=== PATIENT | female | born 1990 | race Caucasian/White ===

== ENCOUNTER → 2025-01-10 | Outpatient (CLI) | payer OTHER, SELFPAY ==
--- NOTE | 2025-01-10 14:05 | DI.US.S_ITS ---
PROCEDURE: US OB BIOPHYSICAL PROFILE INDICATIONS: Post term OUTSIDE/PRIOR DATING DATA: The calculations are made using the working NGUYỄN of 12/24/2024 TECHNIQUE: Real-time scanning was performed of the fetus, with image documentation. Biophysical profile was also obtained. Endovaginal scanning: Not performed COMPARISON: None. FINDINGS: General: A single living intrauterine gestation is present. Presentation: Vertex Placenta: Placental position is anterior, without previa. Amniotic fluid index: 14.6 cm, normal range is 5-24 cm. Single deepest vertical pocket is 5.3 cm. heart rate: 147 beats per minute. Maternal cervical canal: Not well seen. Clinically estimated gestational age: 42 weeks, 3 days. Biophysical profile: Tone: 2 points. Movement: 2 points. Respiration: 2 points. Largest pocket of fluid: 2 points. IMPRESSION: 1. Single live intrauterine gestation with fetus in vertex presentation. heart rate is 147 beats per minute. Normal MARIUSZ at 14.6 cm. 2. biophysical profile score is 8/8. We strive to produce accurate, complete, and clear reports of imaging services. To assist us in improving patient care, this report was composed using standard report templates and voice recognition software. Therefore, it may contain abnormal punctuation, insertions and/or omissions. Occasional wrong-word or sound-alike substitutions may occur. Though we review the report and make efforts to correct it, we do recommend that the report be read carefully in proper context to recognize any text inaccuracies. Dictated by: Crispin Lr M.D. on 01/10/2025 at 20:42 Approved by: Crispin Lr M.D. on 01/10/2025 at 20:43
== END ==
LOC: US 14:05
PROVIDERS: Referring Provider Nurse Practitioner Obstetrics & Gynecology; Visit Provider Nurse Practitioner Obstetrics & Gynecology
DX: O48.0 Post-term pregnancy (principal); Z3A.42 42 weeks gestation of pregnancy
CPT/HCPCS: 76819

== ENCOUNTER 2025-04-17 13:44 | Emergency (ER) | payer OTHER, SELFPAY ==
[2025-04-17 14:28] VITALS: BP 142/86; PULSE 78; RESP 14; TEMP 36.7; O2SAT 99; BMI 27.4
--- NOTE | 2025-04-20 17:10 | ED.HA ---
HPI - Headache General Chief Complaint: Headache Stated Complaint: Migraine for 5days; getting worse LT side Time Seen by Provider: 04/17/25 16:22 Mode of arrival: Ambulatory Related Data Allergies Allergy/AdvReac Type Severity Reaction Status Date / Time dextromethorphan (From AdvReac Vomiting Verified 04/17/25 14:28 NyQuil) doxylamine (From NyQuil) AdvReac Vomiting Verified 04/17/25 14:28 pseudoephedrine (From NyQuil) AdvReac Vomiting Verified 04/17/25 14:28 Patient History Social History Smoking Status: Former smoker Smoking Status: Former smoker Exam Initial Vital Signs Initial Vital Signs: Vital Signs Temperature 98.0 F 04/17/25 14:28 Pulse Rate 78 04/17/25 14:28 Respiratory Rate 14 04/17/25 14:28 Blood Pressure 142/86 H 04/17/25 14:28 Pulse Oximetry 99 04/17/25 14:28 Oxygen Delivery Method Room Air 04/17/25 14:28 MDM - Headache MDM Narrative Medical decision making narrative: left without being seen Discharge Plan Departure Patient Disposition: Left Without Being Seen Clinical Impression: Patient left without being seen
== END 2025-04-17 16:23 | disposition left against medical advice (07) ==
PROVIDERS: Emergency Provider Family Medicine
CPT/HCPCS: 99281